=== PATIENT | female | born 1985 | race Caucasian/White ===

== ENCOUNTER 2020-04-15 07:00 | Inpatient (IN) | payer OTHER ==
[2020-04-15] MEDS ORDERED: METHYLERGONOVINE 0.2 MG/ML 1 ML AMP IM PRN (07:17)
[2020-04-15] MEDS ORDERED: CARBOPROST TROMETHAMINE 250 MCG/ML 1 ML AMP IM PRN (07:17)
[2020-04-15] MEDS ORDERED: LIDOCAINE 0.5% (PF) 5 MG/ML (50 ML SDV) SQ PRN (07:17)
[2020-04-15] MEDS ORDERED: TERBUTALINE 1 MG/ML VIAL SQ PRN (07:17)
[2020-04-15] MEDS ORDERED: OXYTOCIN 10 UNIT/ML 1 ML VIAL IM PRN (07:17)
[2020-04-15] MEDS ORDERED: OXYTOCIN 30 UNITS/500 ML NS 30 UNIT in SALINE 1 500ML.BAG IV SCH (07:30)
[2020-04-15] MEDS: LACTATED RINGERS 1,000 ML IV SCH ×2 (07:38→08:21)
[2020-04-15 07:52] LABS: Basophils % (A) 0 %; Eosinophils # (A) 0.2 k/uL (0-0.7); Eosinophils % (A) 2 %; HCT 38.1 % (34.0-46.0); HGB 13.2 gm/dL (11.4-16.0); Lymphocytes # (A) 2.9 k/uL (1.0-4.8); Lymphocytes % (A) 18 %; MCH 32.3 pg (25.0-35.0); MCHC 34.6 g/dL (31.0-37.0); MCV 93.2 fL (80.0-100.0); Mean Platelet Volume 8.2; Monocytes # (A) 0.6 k/uL (0-1.0); Monocytes % (A) 4 %; Neutrophils # (A) 12.1 k/uL (1.3-7.7); Neutrophils % (A) 75 %; Platelet Count 253 k/uL (150-450); RBC 4.09 m/uL (3.80-5.40); RDW 12.9 % (11.5-15.5); WBC 16.1 k/uL (3.8-10.6)
[2020-04-15] MEDS ORDERED: ROPIVACAINE 100 MG, fentaNYL (PF) 200 MCG in SODIUM CHLORIDE 0.9% 76 ML EPIDURAL ONE (08:19)
--- NOTE | 2020-04-15 08:23 | P.HPOB ---
History of Present Illness H&P Date: 04/15/20 Chief Complaint: Contractions at 38-6/7 This is a 34 showed 2 para 1 woman with an estimated due date of 04/23/2020 based on LMP consistent with second trimester ultrasound. She presents to labor and delivery with several hours of worsening contractions. She is found to be 5-6 cm dilated on admission. She denies rupture of membranes or vaginal bleeding. Her has been on uncomplicated however she has had some musculoskeletal issues with the some exacerbation of lower extremity neuropathy is on the from prepregnancy as well as some carpal tunnel type symptoms. Supportive care has been implemented. Her surgical history is significant for a previous term vaginal delivery. Her blood type is O+, antibody screen negative, rubella immune, VDRL non reactive, hep Jaleesa surface antigen negative, HIV negative, gonorrhea and clinic cultures negative, diabetes testing within normal limits, group B strep cultures negative. Review of Systems All systems: negative Past Medical History Past Medical History: No Reported History History of Any Multi-Drug Resistant Organisms: None Reported Smoking Status: Never smoker Medications and Allergies Home Medications Medication Instructions Recorded Confirmed Type Calcium Carbonate [Tums] 500 mg PO Q6HR PRN 04/15/20 04/15/20 History Pnv,Calcium 72/Iron/Folic Acid 1 each PO DAILY 04/15/20 04/15/20 History [ Plus Tablet] Allergies Allergy/AdvReac Type Severity Reaction Status Date / Time No Known Allergies Allergy Verified 04/15/20 07:10 Exam Intake and Output 04/14/20 04/15/20 04/15/20 22:59 06:59 14:59 Other: Weight 73.936 kg At the time of my initial assessment the patient is sitting up and preparation for epidural anesthetic per. Per RN report patient is still 5-6 cm dilated with intact membranes. heart tones are category 1. She is spontaneous therese every 2-4 minutes. Results Result Diagrams: 04/15/20 07:30 Abnormal Lab Results - Last 24 Hours (Table) 04/15/20 Range/Units 07:30 WBC 16.1 H (3.8-10.6) k/uL Neutrophils # 12.1 H (1.3-7.7) k/uL Assessment and Plan (1) Spontaneous onset of labor Current Visit: Yes Status: Acute Code(s): FSC1956 - SNOMED Code(s): 39664388 Plan: 34-year-old 2 para 1 woman at 38-6/7 weeks in spontaneous active labor. status currently reassuring. She is group B strep negative and Rh+. Receiving epidural anesthetic. Anticipate normal spontaneous vaginal delivery.
[2020-04-15] MEDS ORDERED: ZOLPIDEM 5 MG TAB PO PRN (10:27)
[2020-04-15] MEDS ORDERED: HYDROCORTISONE 2.5% RECTAL CREAM 30 GM TUBE RECTAL PRN (10:27)
[2020-04-15] MEDS ORDERED: LANOLIN CREAM 5 GM TUBE TOPICAL PRN (10:27)
[2020-04-15] MEDS ORDERED: diphenhydrAMINE 50 MG CAP PO PRN (10:27)
[2020-04-15] MEDS ORDERED: SIMETHICONE 80 MG CHEWABLE PO PRN (10:27)
[2020-04-15] MEDS ORDERED: diphenhydrAMINE 50 MG/ML 1 ML VIAL IVP PRN ×2 (10:27)
[2020-04-15] MEDS ORDERED: diphenhydrAMINE 25 MG CAP PO PRN (10:27)
[2020-04-15] MEDS ORDERED: ACETAMINOPHEN TAB 325 MG TAB PO PRN (10:27)
[2020-04-15] MEDS ORDERED: BENZOCAINE/MENTHOL SPRAY 1 GM/SPRAY AEROSOL TOPICAL PRN (10:27)
--- NOTE | 2020-04-15 10:27 | P.PROBDLV ---
Vaginal Delivery Note - . Vaginal Delivery Note: Findings: Male infant in the vertex direct occiput anterior position. Apgars 9 at 1 minute and 9 at 5 minutes weighing 6 lbs. 14 oz. Intact, three-vessel cord placenta. First-degree perineal laceration. EBL 150 mL's. Delivery summary: This is a 34-year-old 2 para 1 woman who presented at 38-6/7 weeks' gestation in spontaneous active labor. Following admission she was 5-6 cm dilated and received an epidural anesthetic. She underwent artificial rupture of membranes at 7 cm. She then progressed to complete cervical dilation and began pushing with excellent maternal effort. During the second stage she did have some bradycardia to the 70 bpm however was making excellent progress with maternal effort. She was repositioned, prepped and draped in the dorsal modified Erin position. On the head then delivered from the direct occiput anterior position. was rotated to the left occiput anterior position where the anterior followed by the posterior shoulders then did deliver without difficulty. The rest the infant was delivered onto the field where the nose and mouth were bulb suctioned. The was placed on the maternal abdomen. Eventually the cord was clamped and cut. Apgars 9 at 1 minute and 9 at 5 minutes and weight was 6 lbs. 14 oz. Her name was infused with lidocaine. An intact, three-vessel cord placenta was expressed after approximately 4 minute third stage of labor. The perineum was reinspected and a first-degree laceration was repaired with 3-0 Vicryl suture. The uterus was massaged and was noted to be firm at the level of the umbilicus. Patient received Pitocin following delivery of the placenta. The rest of the vagina, cervix were inspected and noted to be free of lacerations. The bladder was drained for approximately 200 mL of clear urine following delivery. All counts were correct. Both mother and were doing well post delivery in the room.
[2020-04-15] MEDS ORDERED: OXYTOCIN 20 UNITS/1000 ML NS 1,000 ML IV SCH (10:30)
[2020-04-15] MEDS: IBUPROFEN 600 MG TAB PO PRN ×2 (12:24→18:41)
[2020-04-15] MEDS: SENNOSIDES-DOCUSATE SODIUM 1 EACH TAB PO SCH (19:32)
[2020-04-16] MEDS: IBUPROFEN 600 MG TAB PO PRN ×2 (00:46→07:06)
[2020-04-16 07:03] LABS: Basophils % (A) 0 %; Eosinophils # (A) 0.2 k/uL (0-0.7); Eosinophils % (A) 1 %; HCT 30.8 % (34.0-46.0); HGB 10.7 gm/dL (11.4-16.0); Lymphocytes # (A) 2.5 k/uL (1.0-4.8); Lymphocytes % (A) 16 %; MCH 33.3 pg (25.0-35.0); MCHC 34.9 g/dL (31.0-37.0); MCV 95.4 fL (80.0-100.0); Monocytes # (A) 0.6 k/uL (0-1.0); Monocytes % (A) 4 %; Neutrophils # (A) 12.2 k/uL (1.3-7.7); Neutrophils % (A) 78 %; Platelet Count 189 k/uL (150-450); RBC 3.23 m/uL (3.80-5.40); RDW 12.6 % (11.5-15.5); WBC 15.7 k/uL (3.8-10.6)
[2020-04-16] MEDS: SENNOSIDES-DOCUSATE SODIUM 1 EACH TAB PO SCH (07:30)
--- NOTE | 2020-04-16 11:08 | P.DS ---
Providers Date of admission: 04/15/20 07:12 Expected date of discharge: 04/16/20 Attending physician: Jhoana Carson Primary care physician: Stated None - Discharge Diagnosis(es) (1) Spontaneous onset of labor Current Visit: Yes Status: Acute (2) Normal spontaneous vaginal delivery Current Visit: Yes Status: Acute (3) Perineal laceration with delivery, first degree Current Visit: Yes Status: Acute Hospital Course: This is a 34-year-old 2 now para 2 woman who is admitted in spontaneous active labor at 38-6/7 weeks' gestation. She presented in labor with the cervix 5-6 cm dilated. Following admission she did receive an epidural anesthetic. She underwent artificial rupture of membranes. She had reassuring heart tones throughout the first stage of labor. She did progress to complete cervical dilation and had a rapid second stage of labor. She did have some transient bradycardia during the second stage down to the 70 bpm however was making excellent maternal effort and progress. She did deliver a liveborn male over a first-degree perineal laceration with Apgars of 9 at 1 minute and 9 at 5 minutes weighing 6 lbs. 14 oz. Please see the delivery summary for details. Patient's course was unremarkable. By day #1 she was ambulating and voiding without difficulty. She was tolerating a general diet. Her vital signs were stable and her postop day 1 labs within normal limits. She was on breast-feeding successfully. The infant circumcision was completed and she was discharged home with routine instructions for care and follow-up. Patient Condition at Discharge: Good Plan - Discharge Summary New Discharge Prescriptions: No Action Calcium Carbonate [Tums] 500 mg PO Q6HR PRN PRN Reason: Heartburn Pnv,Calcium 72/Iron/Folic Acid [ Plus Tablet] 1 each PO DAILY Discharge Medication List Calcium Carbonate [Tums] 500 mg PO Q6HR PRN 04/15/20 [History] Pnv,Calcium 72/Iron/Folic Acid [ Plus Tablet] 1 each PO DAILY 04/15/20 [History] Follow up Appointment(s)/Referral(s): Jhoana Carson MD [STAFF PHYSICIAN] - 6 Weeks Activity/Diet/Wound Care/Special Instructions: Follow-up in the office in 6 weeks . Call with any concerning signs or symptoms including heavy vaginal bleeding, severe abdominal pain, fever greater than 101, swelling or redness of the lower extremities, foul vaginal discharge, or signs of depression. Nothing in the vagina for 6 weeks after delivery, specifically no intercourse. May use [id number] Tylenol and/or ibuprofen as needed for pain. Discharge Disposition: HOME SELF-CARE
[2020-04-16 15:56] VITALS: BP 104/67; PULSE 75; RESP 16; TEMP 98.1
== END 2020-04-16 16:48 | disposition home or self-care (01) | DRG 807 ==
LOC: FBPOP 07:00 → 4FBP 07:12
PROVIDERS: ADMIT Obstetrics & Gynecology Obstetrics; ATTEND Obstetrics & Gynecology
PROC: 10E0XZZ Delivery of Products of Conception, External Approach (ICD-10-PCS; principal; 2020-04-15)
PROC: 3E0R3BZ Introduction of Anesthetic Agent into Spinal Canal, Percutaneous Approach (ICD-10-PCS; principal; 2020-04-15)
PROC: 0HQ9XZZ Repair Perineum Skin, External Approach (ICD-10-PCS; principal; 2020-04-15)
PROC: 00HU33Z Insertion of Infusion Device into Spinal Canal, Percutaneous Approach (ICD-10-PCS; principal; 2020-04-15)
DX: O76 Abnormality in fetal heart rate and rhythm complicating labor and delivery (principal); Z37.0 Single live birth; O70.0 First degree perineal laceration during delivery; Z3A.38 38 weeks gestation of pregnancy; Z79.899 Other long term (current) drug therapy
CPT/HCPCS: 85025; 86850; 86900; 86901; 99213